=== PATIENT | male | born 1955 | race Caucasian/White ===

== ENCOUNTER → 2019-03-04 | Outpatient (CLI) | payer MEDICARE ==
--- NOTE | 2019-03-04 17:03 | REP ---
HISTORY: Pain. COMPARISON: None. There is humeral head marginal osteophytosis. There is irregularity of the inferior glenoid. The glenohumeral relationship is within normal limits. IMPRESSION: 1. I cannot rule out the possibility of a bony Bank[place] lesion. 2. Humeral head marginal osteophytosis. 3. Consider MRI. Electronically Signed by Alden Guillermo DO 03/05/2019 11:28 A
== END ==
LOC: M WUC 14:37
PROVIDERS: ATTEND Physician Assistant
DX: M25.512 Pain in left shoulder (principal)